=== PATIENT | female | born 1960 | race Caucasian/White ===

== ENCOUNTER 2021-01-09 11:45 | Outpatient (CLI) | payer MEDICARE, MEDICAID, SELFPAY ==
--- NOTE | ~2021-01-09 | MM_ITS ---
EXAMINATION: MM screening [facility] w [facility] HISTORY: Screening TECHNIQUE: Craniocaudal and mediolateral oblique 3-D tomosynthesis images were obtained and synthetic 2-D images were generated. CAD analysis was submitted and interpreted. COMPARISON: Comparison to multiple prior studies sequentially, with oldest reviewed study dated 05/12. . BREAST PARENCHYMAL COMPOSITION: The breasts are almost entirely fatty. FINDINGS: There is no evidence of suspicious mass, calcification, or architectural distortion to sugg est malignancy in either breast. There has been no suspicious interval change. IMPRESSION: 1. No mammographic evidence of malignancy. 2. Recommend routine screening mammography in one year. BI-RADS Category 1: Negative Reviewed, dictated and finalized at location A.
== END 2021-01-09 11:46 | disposition home or self-care (01) ==
PROVIDERS: PCP Obstetrics & Gynecology; Visit Provider Obstetrics & Gynecology
DX: Z12.31 Encounter for screening mammogram for malignant neoplasm of breast (principal)
CPT/HCPCS: 77063; 77067

== ENCOUNTER 2022-04-29 07:19 | Outpatient (CLI) | payer MEDICARE, MEDICAID, SELFPAY ==
--- NOTE | ~2022-04-29 | MM_ITS ---
EXAMINATION: MM screening [facility] BI w paul HISTORY: Screening mammogram TECHNIQUE: Craniocaudal and mediolateral oblique 3-D tomosynthesis images were obtained and synthetic 2-D images were generated. CAD analysis was submitted and interpreted. COMPARISON: 01/09/2021, 07/05/2018, 06/29/2017 BREAST PARENCHYMAL COMPOSITION: The breasts are almost entirely fatty. FINDINGS: There is no suspicious mass, calcification, or architectural distortion to suggest malignan cy in either breast. There has been no suspicious interval change. IMPRESSION: 1. No mammographic evidence of malignancy. 2. Recommend routine screening mammography in one year. BI-RADS Category 1: Negative Reviewed, dictated and finalized at location A.
== END 2022-04-29 07:20 | disposition home or self-care (01) ==
DX: Z12.31 Encounter for screening mammogram for malignant neoplasm of breast (principal)
CPT/HCPCS: 77063; 77067

== ENCOUNTER 2023-09-29 16:58 | Emergency (ER) | payer BC, MEDICARE, SELFPAY ==
--- NOTE | ~2023-09-29 | XR_ITS ---
EXAMINATION: XR knee LT 3V DATE: 09/29/2023 20:35 INDICATION: Left knee injury and pain. TECHNIQUE: 3 views of left knee were obtained. COMPARISON: None. FINDINGS: Bone alignment is normal. No fracture. There is mild tricompartmental osteoarthritis. No kn ee joint effusion. IMPRESSION: 1. Mild left knee osteoarthritis. Reviewed, dictated and finalized at location E. [employer]
[2023-09-29 17:06] VITALS: BP 145/73; PULSE 80; RESP 16; TEMP 36.7; O2SAT 100
--- NOTE | 2023-09-29 20:58 | ED.LOWEXIN ---
HPI - Extremity Injury (Lower) General Chief Complaint: Extremity Injury, Lower Stated Complaint: left knee pain Time Seen by Provider: 09/29/23 20:57 Source: patient Mode of arrival: ambulatory Limitations: no limitations History of Present Illness HPI Narrative: 63-year-old female presents with left knee pain. Patient states she was walking down 1 step when she heard a pop. She has no experiencing 10 of 10 pain with movement at the knee joint in this extremity. She has not taken anything for pain. No prior history of surgery in this extremity. She is experiencing pain throughout the medial and lateral aspect of her knee as well as some pain anteriorly over the knee and the proximal tibia. Pain radiates down her anterior leg. She states she was already having pain in this extremity before. She has a history of right heel Achilles tendon surgery/repair through Dr. James at [facility]. PCP Judie Mariscal at [facility]. Related Data Allergies Allergy/AdvReac Type Severity Reaction Status Date / Time tetanus toxoid, adsorbed Allergy Unknown Verified 02/29/16 10:30 [facility] Surgical History Surgical History History of Achilles tendon repair Right (Dr James at [facility]) Family History Family History (Updated 03/07/16 @ 23:19 by DOCTOR UNKNOWN) Mother Family history of Alzheimer's disease Patient's mother is Sibling Family history of diabetes mellitus in first degree relative Father Family history of heart disease in male family member before age 55 Patient's father is Other Cerebrovascular accident Family history of kidney disease Family history of malignant neoplasm Hypertension Social History Social History Smoking status: Never smoker Alcohol intake: current Exam Narrative: GENERAL: Well-appearing, well-nourished, and in no acute distress. HEAD: Normocephalic, atraumatic. EYES: Non injected, non icteric ENT: Nares clear, no rhinorrhea or epistaxis. NECK: Supple. CHEST: Speaking in full sentences. no respiratory distress. HEART: Regular rate and rhythm. . ABDOMEN: Soft, nondistended. EXTREMITIES: No edema. Warm and well perfused. Mild tenderness palpation along medial and lateral the joint lines as well as some anterior portion of knee but not particularly at the tibial tuberosity. No significant effusion appreciable. Patient does demonstrate 5/5 strength with hip flexion on the left and right as well as 5/5 strength with ankle dorsiflexion plantar flexion on the left. She does have slightly diminished, 4/5 strength with left knee extension flexion but is able to engage both of these and it appears to be give-away secondary to pain. SKIN: Warm, dry, no rash. NEURO: No focal deficits. Alert and oriented . Sensation intact and symmetric to gross touch throughout bilateral lower extremities. PSYCH: Normal mood and affect. Course Vital Signs Vital signs: Vital Signs Temperature 98.0 F 09/29/23 17:06 Pulse Rate 80 09/29/23 17:06 Respiratory Rate 16 09/29/23 17:06 Blood Pressure 145/73 H 09/29/23 17:06 Pulse Oximetry 100 09/29/23 17:06 Oxygen Delivery Room Air 09/29/23 17:06 Temperature 98.1 F 09/29/23 21:38 Pulse Rate 78 09/29/23 21:38 Respiratory Rate 16 09/29/23 21:38 Blood Pressure 152/70 H 09/29/23 21:38 Pulse Oximetry 98 09/29/23 21:38 Oxygen Delivery Room Air 09/29/23 17:06 MDM - Extremity Injury (Lower) MDM Narrative Medical decision making narrative: Patient presents with left knee pain. She experienced a sensation of popping in this extremity while walking down 1 step earlier today. She experiences 10 out 10 pain with movement. Emergency department she is afebrile with vital signs notable for mild hypertension. Patient will be given analgesic medication as well as a knee immobilizer. She states she really has crutches at home from a
[2023-09-29] MEDS: HYDROcodone/acetaminophen (*CRX) 5-325 MG TABLET 1 TAB PO (21:26)
[2023-09-29] MEDS: ACETAMINOPHEN 325 MG TABLET 650 MG PO (21:27)
--- NOTE | 2023-09-29 21:30 | PC.NURSE ---
Patient states that she has crutches at home
[2023-09-29 21:38] VITALS: BP 152/70; PULSE 78; RESP 16; TEMP 36.7; O2SAT 98
== END 2023-09-29 21:39 | disposition home or self-care (01) ==
PROVIDERS: Emergency Provider Student in an Organized Health Care Education/Training Program
DX: S89.92XA Unspecified injury of left lower leg, initial encounter (principal); X58.XXXA Exposure to other specified factors, initial encounter
CPT/HCPCS: 73562; 99283; A9270